=== PATIENT | female | born 1965 | race Caucasian/White ===

== ENCOUNTER 2019-05-14 09:36 | Emergency (ER) | payer OTHER ==
[~2019-05-14] VITALS: Ht 172.7 cm; Wt 104.3 kg
[2019-05-14 09:45] VITALS: BP 134/81
[2019-05-14] MEDS ORDERED: LIDOCAINE 1% HCL (LOCAL ANESTH.) INJ 20ML MDV IJ ONE (11:45)
[2019-05-14] MEDS ORDERED: TETANUS-DIPTH-ACEL PERTUSSIS 0.5ML SYRG IM ONE (12:00)
== END 2019-05-14 12:07 | disposition home or self-care (01) ==
LOC: ER 09:40
DX: S60.454A Superficial foreign body of right ring finger, initial encounter (principal); W22.8XXA Striking against or struck by other objects, initial encounter; Y93.E9 Activity, other interior property and clothing maintenance; Y92.89 Other specified places as the place of occurrence of the external cause; Y99.8 Other external cause status
CPT/HCPCS: 90471; 90715; 99283; J2001; 10120